=== PATIENT | male | born 1945 | race Caucasian/White ===

== ENCOUNTER 2020-12-22 09:54 | Inpatient (IN) | payer OTHER ==
[2020-12-22] MEDS ORDERED: ONDANSETRON 4 MG/2 ML VIAL IVPUSH ONE (10:44)
[2020-12-22] MEDS ORDERED: SODIUM CHLORIDE 1,000 ML IV STA (10:44)
[2020-12-22] MEDS ORDERED: ACETAMINOPHEN 500 MG TABLET (FP) PO ONE (10:48)
[2020-12-22] MEDS ORDERED: ACETAMINOPHEN INJECTION 100 ML IVPB ONE (11:33)
[2020-12-22 12:37] LABS: BASO % 0.6 % (0-2.0); EOS % 0.2 % (0-4.5); HEMATOCRIT 39.3 % (35.4-49); HEMOGLOBIN 13.8 GM/dL (11.7-16.9); LYMPH % 4.8 % (8-40); MCH 32.3 pg (25.7-33.7); MCHC 35.2 g/dl (32.0-35.9); MEAN CELL VOLUME 91.6 fl (80-96); MEAN PLT VOLUME 8.2 fl (7.5-11.1); MONO % 3.4 % (3.8-10.2); PLATELET COUNT 235 K/MM3 (134-434); RBC 4.28 M/mm3 (4.00-5.60); RDW 13.7 % (11.9-15.9); WHITE BLOOD COUNT 13.5 K/mm3 (4.0-10.0)
[2020-12-22 12:54] LABS: CHLORIDE 95 mmol/L (98-107); SODIUM 130 mmol/L (136-145)
[2020-12-22 12:58] LABS: CALCIUM 8.9 mg/dL (8.5-10.1)
[2020-12-22 12:59] LABS: ALBUMIN 3.6 g/dl (3.4-5.0); ANION GAP 8 MMOL/L (8-16); BLOOD UREA NITROGEN 13.3 mg/dL (7-18); CO2 27 mmol/L (21-32); GLUCOSE,RANDOM 119 mg/dL (74-106)
[2020-12-22 13:02] LABS: CREATININE 1.1 mg/dL (0.55-1.3); SGOT/AST 44 U/L (15-37); SGPT/ALT 25 U/L (13-61)
[2020-12-22 13:03] LABS: BILIRUBIN,TOTAL 1.1 mg/dL (0.2-1); TOT PROT 7.5 g/dl (6.4-8.2)
[2020-12-22 13:05] LABS: ALK PHOS 39 U/L (45-117)
[2020-12-22 14:08] LABS: ANISOCYTOSIS 0; HELMET CELLS 0; HOWELL-JOLLY BODIES 0; MACROCYTOSIS 0; OVALOCYTE 0; PLATELET ESTIMATE NORMAL; ROULEAU 0; SICKELED CELLS 0; TARGET CELLS 0; TEAR DROP CELLS 0; TOXIC GRANULATION 0
[2020-12-22] MEDS ORDERED: VANCOMYCIN 1 GM in D5W (PRE-DOCKED) 1,000 MG/250 ML IVPB ONE (15:05)
[2020-12-22] MEDS ORDERED: AZTREONAM 1 GM VIAL (RESTRICTED TO ID) IVPB ONE (15:06)
[2020-12-22] MEDS ORDERED: AZTREONAM 1 GM VIAL (RESTRICTED TO ID) ONE (16:25)
[2020-12-22] MEDS ORDERED: VANCOMYCIN 1 GRAM (PRE-DOCKED) 1,000 MG/250 ML BAG IVPB ONE (16:26)
[2020-12-22 19:03] LABS: PH,URINE 5.5 (5.0-8.0); URINE APPEARANCE CLEAR; URINE BILIRUBIN NEGATIVE (NEGATIVE); URINE COLOR YELLOW; URINE GLUCOSE (UA) NEGATIVE (NEGATIVE); URINE KETONE NEGATIVE (NEGATIVE); URINE LEUK ESTERASE NEGATIVE (NEGATIVE); URINE NITRITE NEGATIVE (NEGATIVE); URINE PROTEIN NEGATIVE (NEGATIVE); URINE UROBILINOGEN 0.2 mg/dL (0.2-1.0)
[2020-12-22] MEDS ORDERED: DONEPEZIL HCL 5 MG TABLET (FP) ONE (21:28)
[2020-12-22] MEDS ORDERED: APIXABAN 5 MG TABLET ONE (21:28)
[2020-12-22] MEDS: ROSUVASTATIN CA 5 MG TABLET (FP) PO SCH (21:47)
[2020-12-22] MEDS: DONEPEZIL HCL 10 MG TABLET (FP) PO SCH (21:47)
[2020-12-22] MEDS: APIXABAN 5 MG TABLET PO SCH (21:47)
[2020-12-23 02:13] VITALS: BMI 27.7
[2020-12-23] MEDS: CLOPIDOGREL BISULFATE 75 MG TABLET (FP) PO SCH (09:17)
[2020-12-23] MEDS: PANTOPRAZOLE 20 MG TABLET PO SCH (09:18)
[2020-12-23] MEDS: APIXABAN 5 MG TABLET PO SCH ×2 (09:18→21:19)
[2020-12-23] MEDS: ASPIRIN 81 MG CHEWABLE TABLETS PO SCH (09:18)
[2020-12-23 09:46] LABS: BASO % 0.6 % (0-2.0); EOS % 0.9 % (0-4.5); HEMATOCRIT 40.2 % (35.4-49); HEMOGLOBIN 14.2 GM/dL (11.7-16.9); LYMPH % 11.2 % (8-40); MCH 32.5 pg (25.7-33.7); MCHC 35.3 g/dl (32.0-35.9); MEAN PLT VOLUME 7.5 fl (7.5-11.1); MONO % 8.2 % (3.8-10.2); NEUT % 79.1 % (42.8-82.8); PLATELET COUNT 209 K/MM3 (134-434); RBC 4.37 M/mm3 (4.00-5.60); WHITE BLOOD COUNT 10.1 K/mm3 (4.0-10.0)
[2020-12-23 10:13] LABS: ALBUMIN 3.5 g/dl (3.4-5.0); BLOOD UREA NITROGEN 11.8 mg/dL (7-18)
[2020-12-23 10:14] LABS: CALCIUM 8.5 mg/dL (8.5-10.1); MAGNESIUM 1.8 mg/dL (1.8-2.4)
[2020-12-23 10:16] LABS: CREATININE 0.9 mg/dL (0.55-1.3)
[2020-12-23 10:18] LABS: TOT PROT 7.1 g/dl (6.4-8.2)
[2020-12-23 10:20] LABS: BILIRUBIN,TOTAL 0.8 mg/dL (0.2-1)
[2020-12-23] MEDS: OSELTAMIVIR PHOSPHATE 75 MG CAPSULE PO SCH ×2 (13:45→22:11)
[2020-12-23] MEDS ORDERED: PT OWN MED DRAWER 7, Y5N ONE ×2 (21:15→23:24)
[2020-12-23] MEDS: ROSUVASTATIN CA 5 MG TABLET (FP) PO SCH (21:19)
[2020-12-23] MEDS: DONEPEZIL HCL 10 MG TABLET (FP) PO SCH (21:19)
[2020-12-24 09:22] LABS: CALCIUM 8.7 mg/dL (8.5-10.1)
[2020-12-24 09:23] LABS: BLOOD UREA NITROGEN 13.9 mg/dL (7-18)
[2020-12-24 09:26] LABS: CREATININE 0.8 mg/dL (0.55-1.3)
[2020-12-24] MEDS ORDERED: PT OWN MED DRAWER 7, Y5N ONE (09:57)
[2020-12-24] MEDS: PANTOPRAZOLE 20 MG TABLET PO SCH (09:59)
[2020-12-24] MEDS: APIXABAN 5 MG TABLET PO SCH (09:59)
[2020-12-24] MEDS: OSELTAMIVIR PHOSPHATE 75 MG CAPSULE PO SCH (09:59)
[2020-12-24] MEDS: ASPIRIN 81 MG CHEWABLE TABLETS PO SCH (09:59)
[2020-12-24] MEDS: CLOPIDOGREL BISULFATE 75 MG TABLET (FP) PO SCH (09:59)
[2020-12-24 10:13] VITALS: BP 144/76; PULSE 73; TEMP 98.3
== END 2020-12-24 13:45 | disposition home or self-care (01) | DRG 194 ==
LOC: JER 09:54 → JERBED 16:07 → J5S 23:33
PROVIDERS: ADMIT Internal Medicine
DX: J10.1 Influenza due to other identified influenza virus with other respiratory manifestations (principal); E87.1 Hypo-osmolality and hyponatremia; F03.90 Unspecified dementia, unspecified severity, without behavioral disturbance, psychotic disturbance, mood disturbance, and anxiety; I48.91 Unspecified atrial fibrillation; E78.5 Hyperlipidemia, unspecified; I10 Essential (primary) hypertension; I25.10 Atherosclerotic heart disease of native coronary artery without angina pectoris; Z95.5 Presence of coronary angioplasty implant and graft; D72.829 Elevated white blood cell count, unspecified
CPT/HCPCS: 36415; 71045-TC-FY; 71250-TC; 80048; 80053; 81003; 82550; 83735; 84100; 84443; 84484; 85025; 86769; 87804; 93005; 93010; 99285-25; C9803; U0003; U0005

== ENCOUNTER 2024-11-16 10:22 | Inpatient (IN) | payer OTHER ==
[2024-11-16 10:30] VITALS: BMI 26.6
[2024-11-16 11:47] LABS: EOS % 2.2 % (0-4.5); HEMATOCRIT 23.4 % (35.4-49); HEMOGLOBIN 7.4 GM/dL (11.7-16.9); LYMPH % 13.3 % (8-40); MCH 26.3 pg (25.7-33.7); MCHC 31.7 g/dl (32.0-35.9); MEAN CELL VOLUME 82.9 fl (80-96); MEAN PLT VOLUME 7.3 fl (7.5-11.1); MONO % 8.9 % (3.8-10.2); NEUT % 74.6 % (42.8-82.8); PLATELET COUNT 317 10^3/uL (134-434); RBC 2.82 M/mm3 (4.00-5.60); RDW 14.9 % (11.9-15.9)
[2024-11-16] MEDS ORDERED: ACETAMINOPHEN INJECTION 100 ML ONE (11:47)
[2024-11-16 11:53] LABS: INR 1.85 (0.83-1.09); PROTHROMBIN TIME (PATIENT) 20.2 SEC (9.7-13.0)
[2024-11-16 11:55] LABS: ACTIVATED PTT 33.6 SECONDS (25.2-36.5)
[2024-11-16 12:02] LABS: POTASSIUM 4.8 mmol/L (3.5-5.1)
[2024-11-16 12:04] LABS: CALCIUM 8.6 mg/dL (8.5-10.1)
[2024-11-16 12:05] LABS: ALBUMIN 3.5 g/dl (3.4-5.0); BLOOD UREA NITROGEN 16.9 mg/dL (7-18)
[2024-11-16] MEDS: ACETAMINOPHEN 1000 MG/100 ML BAG IVPB ONE (12:05)
[2024-11-16 12:08] LABS: CREATININE 1.3 mg/dL (0.55-1.3)
[2024-11-16 12:09] LABS: BILIRUBIN,TOTAL 0.4 mg/dL (0.2-1); TOT PROT 6.8 g/dl (6.4-8.2)
[2024-11-16 12:13] LABS: N-TERMINAL BNP 1537.2 pg/ml (5-450)
[2024-11-16 12:17] LABS: EPI CELLS 18 /uL (0-25.1); HYALINE CASTS 3 /uL (0-3.1); URINE APPEARANCE CLEAR; URINE BACTERIA 3 /uL (0-1359); URINE BILIRUBIN NEGATIVE (NEGATIVE); URINE COLOR YELLOW; URINE GLUCOSE (UA) NEGATIVE (NEGATIVE); URINE KETONE NEGATIVE (NEGATIVE); URINE LEUK ESTERASE NEGATIVE (NEGATIVE); URINE NITRITE NEGATIVE (NEGATIVE); URINE PROTEIN 1+ (NEGATIVE); URINE RBC 28 /uL (0-23.9); URINE UROBILINOGEN 0.2 mg/dL (0.2-1.0); URINE WBC 29 /uL (0-25.8)
[2024-11-16 12:59] LABS: HIV INTERPRETATION NEGATIVE (NEGATIVE)
[2024-11-16 15:32] LABS: MAGNESIUM 2.2 mg/dL (1.8-2.4)
[2024-11-16] MEDS: INSULIN ASPART SLIDING SCALE (NOVOLOG) 1 VIAL SQ SCH (17:13)
[2024-11-16] MEDS: traMADol HCL 50 MG TABLET PO PRN (17:15)
[2024-11-16] MEDS: ACETAMINOPHEN 325 MG TABLET (FP) PO PRN (20:44)
[2024-11-16] MEDS: PANTOPRAZOLE SODIUM 40 MG VIAL IVPUSH SCH (21:35)
[2024-11-16] MEDS: ROSUVASTATIN CA 5 MG TABLET PO SCH (21:35)
[2024-11-17 07:57] LABS: HEMOGLOBIN 8.2 GM/dL (11.7-16.9); MCHC 32.8 g/dl (32.0-35.9); MEAN CELL VOLUME 82.3 fl (80-96); MEAN PLT VOLUME 7.6 fl (7.5-11.1); PLATELET COUNT 290 10^3/uL (134-434); RBC 3.04 M/mm3 (4.00-5.60); RDW 14.6 % (11.9-15.9); WHITE BLOOD COUNT 8.5 K/mm3 (4.0-10.0)
[2024-11-17 08:08] LABS: POTASSIUM 4.2 mmol/L (3.5-5.1)
[2024-11-17 08:12] LABS: CALCIUM 8.3 mg/dL (8.5-10.1)
[2024-11-17 08:13] LABS: ALBUMIN 3.3 g/dl (3.4-5.0); BLOOD UREA NITROGEN 17.7 mg/dL (7-18); MAGNESIUM 2.2 mg/dL (1.8-2.4)
[2024-11-17 08:16] LABS: CREATININE 1.1 mg/dL (0.55-1.3); PHOSPHOROUS 3.6 mg/dL (2.5-4.9)
[2024-11-17 08:17] LABS: BILIRUBIN,TOTAL 1.2 mg/dL (0.2-1); TOT PROT 6.5 g/dl (6.4-8.2)
[2024-11-17] MEDS: LORATADINE 10 MG TABLET PO SCH (09:46)
[2024-11-17] MEDS: metoPROLOL SUCCINATE 25 MG TAB.SR.24H (FP) PO SCH (09:46)
[2024-11-17] MEDS: IRON SUCROSE INJECTION 100 MG in SODIUM CHLORIDE 95 ML IVPB ONE (15:51)
[2024-11-17] MEDS ORDERED: TORSEMIDE 20 MG TABLET (FP) PO SCH (21:00)
[2024-11-17] MEDS: ROSUVASTATIN CA 20 MG TABLET PO SCH (21:30)
[2024-11-17] MEDS: TORSEMIDE 10 MG TABLET PO SCH (21:30)
[2024-11-18 07:29] LABS: HEMATOCRIT 25.8 % (35.4-49); HEMOGLOBIN 8.3 GM/dL (11.7-16.9); MCH 26.3 pg (25.7-33.7); MCHC 32.1 g/dl (32.0-35.9); MEAN CELL VOLUME 81.9 fl (80-96); MEAN PLT VOLUME 7.8 fl (7.5-11.1); PLATELET COUNT 317 10^3/uL (134-434); RBC 3.15 M/mm3 (4.00-5.60); RDW 14.6 % (11.9-15.9)
[2024-11-18 07:57] LABS: POTASSIUM 4.3 mmol/L (3.5-5.1)
[2024-11-18 08:09] LABS: BLOOD UREA NITROGEN 17.6 mg/dL (7-18); CALCIUM 8.6 mg/dL (8.5-10.1); MAGNESIUM 2.1 mg/dL (1.8-2.4)
[2024-11-18 08:10] LABS: CREATININE 1.3 mg/dL (0.55-1.3)
[2024-11-18] MEDS: IRON SUCROSE INJECTION 200 MG in SODIUM CHLORIDE 100 ML IVPB ONE (14:18)
[2024-11-19 06:54] LABS: INR 1.39 (0.83-1.09); PROTHROMBIN TIME (PATIENT) 15.1 SEC (9.7-13.0)
[2024-11-19 06:57] LABS: BASO % 0.9 % (0-2.0); EOS % 2.6 % (0-4.5); HEMATOCRIT 25.2 % (35.4-49); HEMOGLOBIN 8.2 GM/dL (11.7-16.9); LYMPH % 15.1 % (8-40); MCH 26.9 pg (25.7-33.7); MCHC 32.7 g/dl (32.0-35.9); MEAN CELL VOLUME 82.4 fl (80-96); MEAN PLT VOLUME 7.8 fl (7.5-11.1); MONO % 9.1 % (3.8-10.2); NEUT % 72.3 % (42.8-82.8); PLATELET COUNT 308 10^3/uL (134-434); RBC 3.06 M/mm3 (4.00-5.60); RDW 14.8 % (11.9-15.9); WHITE BLOOD COUNT 9.3 K/mm3 (4.0-10.0)
[2024-11-19 07:47] LABS: POTASSIUM 3.9 mmol/L (3.5-5.1)
[2024-11-19 07:50] LABS: CALCIUM 8.4 mg/dL (8.5-10.1)
[2024-11-19 07:51] LABS: BLOOD UREA NITROGEN 18.9 mg/dL (7-18)
[2024-11-19 07:54] LABS: CREATININE 1.3 mg/dL (0.55-1.3)
[2024-11-19] MEDS: VALSARTAN 160 MG TABLET PO SCH (09:51)
[2024-11-19] MEDS: PANTOPRAZOLE 40 MG TABLET PO SCH (09:51)
[2024-11-19] MEDS ORDERED: BISACODYL 5 MG TABLET.DR (FP) PO ONE (16:00)
[2024-11-19] MEDS: PEG 3350/NA SULF BICARB CL/KCL 4000 ML SOLN.RECON PO ONE (18:18)
[2024-11-19] MEDS: BISACODYL 5 MG TABLET.DR (FP) PO ONE (18:21)
[2024-11-20] MEDS: traMADol HCL 50 MG TABLET PO PRN (00:31)
[2024-11-20 08:00] LABS: POTASSIUM 3.4 mmol/L (3.5-5.1)
[2024-11-20 08:03] LABS: ALBUMIN 3.2 g/dl (3.4-5.0); BLOOD UREA NITROGEN 12.5 mg/dL (7-18)
[2024-11-20 08:04] LABS: HEMOGLOBIN 7.6 g/dL (13.7-17.5); MCHC 30.4 g/dl (32.3-36.5); MEAN CELL VOLUME 87.7 fl (79.0-92.2); PLATELET COUNT 314 x10^3/uL (163-337); RDW 14.2 % (12.6-16.6)
[2024-11-20 08:06] LABS: CREATININE 1.2 mg/dL (0.55-1.3); PHOSPHOROUS 3.6 mg/dL (2.5-4.9)
[2024-11-20 08:08] LABS: BILIRUBIN,TOTAL 0.8 mg/dL (0.2-1); TOT PROT 6.3 g/dl (6.4-8.2)
[2024-11-20 08:23] LABS: ABSOLUTE IMMATURE GRANULOCYTES 0.06 x10^3/uL (0.0-0.031); BASOPHILS # 0.07 x10^3/uL (0.01-0.08); EOSINOPHIL % 3.2 % (0.8-7.0); EOSINOPHILS # 0.33 x10^3/uL (0.04-0.54); HEMATOCRIT 25.5 % (40.1-51.0); HEMOGLOBIN 7.6 g/dL (13.7-17.5); MCHC 29.8 g/dl (32.3-36.5); MEAN CELL VOLUME 87.6 fl (79.0-92.2); MONOCYTE # 0.91 x10^3/uL (0.30-0.82); MONOCYTE % 8.9 % (5.3-12.2); PLATELET COUNT 309 x10^3/uL (163-337); RDW 14.3 % (12.6-16.6)
[2024-11-20] MEDS: KCL 10 MEQ IVPB 10 MEQ/100 ML INFUS.BAG IVPB SCH (09:37)
[2024-11-21 07:58] LABS: HEMATOCRIT 24.6 % (40.1-51.0); HEMOGLOBIN 7.5 g/dL (13.7-17.5); MCHC 30.5 g/dl (32.3-36.5); MEAN CELL VOLUME 87.5 fl (79.0-92.2); MEAN PLT VOLUME 9.7 fl (9.4-12.4); PLATELET COUNT 284 x10^3/uL (163-337); RDW 14.4 % (12.6-16.6)
[2024-11-21 08:14] LABS: POTASSIUM 3.4 mmol/L (3.5-5.1)
[2024-11-21 08:18] LABS: ALBUMIN 3.1 g/dl (3.4-5.0); BLOOD UREA NITROGEN 15.1 mg/dL (7-18); CALCIUM 8.3 mg/dL (8.5-10.1); MAGNESIUM 2.2 mg/dL (1.8-2.4)
[2024-11-21 08:21] LABS: CREATININE 1.2 mg/dL (0.55-1.3)
[2024-11-21 08:22] LABS: PHOSPHOROUS 3.7 mg/dL (2.5-4.9)
[2024-11-21 08:23] LABS: BILIRUBIN,TOTAL 0.6 mg/dL (0.2-1); TOT PROT 6.1 g/dl (6.4-8.2)
[2024-11-21] MEDS: IRON SUCROSE INJECTION 200 MG in SODIUM CHLORIDE 100 ML IVPB ONE (14:48)
[2024-11-21] MEDS: IRON SUCROSE INJECTION 100 MG in SODIUM CHLORIDE 95 ML IVPB ONE (15:41)
[2024-11-21] MEDS: PANTOPRAZOLE 40 MG TABLET PO SCH (21:42)
[2024-11-22 07:07] LABS: HEMATOCRIT 25.5 % (40.1-51.0); HEMOGLOBIN 7.7 g/dL (13.7-17.5); MCHC 30.2 g/dl (32.3-36.5); MEAN CELL VOLUME 89.2 fl (79.0-92.2); PLATELET COUNT 279 x10^3/uL (163-337)
[2024-11-22 07:20] LABS: POTASSIUM 3.3 mmol/L (3.5-5.1)
[2024-11-22 07:26] LABS: BLOOD UREA NITROGEN 13.8 mg/dL (7-18); CALCIUM 8.1 mg/dL (8.5-10.1); MAGNESIUM 2.1 mg/dL (1.8-2.4)
[2024-11-22 07:29] LABS: CREATININE 1.2 mg/dL (0.55-1.3); PHOSPHOROUS 3.3 mg/dL (2.5-4.9)
[2024-11-22 07:30] LABS: BILIRUBIN,TOTAL 0.4 mg/dL (0.2-1); TOT PROT 6.2 g/dl (6.4-8.2)
[2024-11-23 07:37] LABS: HEMATOCRIT 29.8 % (40.1-51.0); HEMOGLOBIN 8.7 g/dL (13.7-17.5); MCHC 29.2 g/dl (32.3-36.5); MEAN CELL VOLUME 90.9 fl (79.0-92.2); MEAN PLT VOLUME 9.8 fl (9.4-12.4); PLATELET COUNT 304 x10^3/uL (163-337); RDW 16.9 % (12.6-16.6)
[2024-11-23 07:38] LABS: POTASSIUM 3.5 mmol/L (3.5-5.1)
[2024-11-23 07:40] LABS: CALCIUM 8.8 mg/dL (8.5-10.1)
[2024-11-23 07:44] LABS: CREATININE 1.2 mg/dL (0.55-1.3); PHOSPHOROUS 3.6 mg/dL (2.5-4.9)
[2024-11-23] MEDS: DOXYCYCLINE INJECTION 100 MG in DEXTROSE 5%-WATER 100 ML IVPB SCH (10:59)
[2024-11-23] MEDS: ENOXAPARIN NA (PORCINE) 80 MG/0.8 ML DISP.SYRIN SQ SCH (18:13)
[2024-11-24 07:12] LABS: INR 1.31 (0.83-1.09); PROTHROMBIN TIME (PATIENT) 14.4 SEC (9.7-13.0)
[2024-11-24 07:15] LABS: ACTIVATED PTT 31.8 SECONDS (25.2-36.5)
[2024-11-24 07:26] LABS: POTASSIUM 3.5 mmol/L (3.5-5.1)
[2024-11-24 07:31] LABS: ALBUMIN 3.1 g/dl (3.4-5.0); BLOOD UREA NITROGEN 13.9 mg/dL (7-18); CALCIUM 8.5 mg/dL (8.5-10.1); MAGNESIUM 1.9 mg/dL (1.8-2.4)
[2024-11-24 07:34] LABS: CREATININE 1.1 mg/dL (0.55-1.3)
[2024-11-24 07:35] LABS: PHOSPHOROUS 3.6 mg/dL (2.5-4.9)
[2024-11-24 07:36] LABS: BILIRUBIN,TOTAL 0.6 mg/dL (0.2-1); TOT PROT 6.4 g/dl (6.4-8.2)
[2024-11-24 07:46] LABS: ABSOLUTE IMMATURE GRANULOCYTES 0.04 x10^3/uL (0.0-0.031); BASOPHILS # 0.07 x10^3/uL (0.01-0.08); EOSINOPHIL % 2.6 % (0.8-7.0); EOSINOPHILS # 0.26 x10^3/uL (0.04-0.54); HEMATOCRIT 27.1 % (40.1-51.0); HEMOGLOBIN 8.2 g/dL (13.7-17.5); MCHC 30.3 g/dl (32.3-36.5); MEAN CELL VOLUME 89.7 fl (79.0-92.2); MEAN PLT VOLUME 10.2 fl (9.4-12.4); MONOCYTE # 0.82 x10^3/uL (0.30-0.82); MONOCYTE % 8.2 % (5.3-12.2); PLATELET COUNT 277 x10^3/uL (163-337); RDW 17.5 % (12.6-16.6)
[2024-11-24 07:50] LABS: HEMATOCRIT 27.6 % (40.1-51.0); HEMOGLOBIN 8.3 g/dL (13.7-17.5); MCHC 30.1 g/dl (32.3-36.5); MEAN CELL VOLUME 89.9 fl (79.0-92.2); MEAN PLT VOLUME 10.2 fl (9.4-12.4); PLATELET COUNT 282 x10^3/uL (163-337); RDW 17.2 % (12.6-16.6)
[2024-11-24] MEDS: POLYETHYLENE GLYCOL 3350 255 GM BTL PO ONE (10:23)
[2024-11-24] MEDS: metroNIDAZOLE 500 MG TABLET PO SCH (14:20)
[2024-11-24] MEDS: NEOMYCIN SO4 500 MG TABLET PO SCH (14:21)
[2024-11-24] MEDS: BISACODYL 5 MG TABLET.DR (FP) PO ONE ×2 (14:29→14:34)
[2024-11-25 06:57] LABS: HEMATOCRIT 26.6 % (40.1-51.0); MCHC 30.1 g/dl (32.3-36.5); MEAN CELL VOLUME 90.8 fl (79.0-92.2); MEAN PLT VOLUME 9.9 fl (9.4-12.4); PLATELET COUNT 254 x10^3/uL (163-337); RDW 17.9 % (12.6-16.6)
[2024-11-25 07:26] LABS: POTASSIUM 3.5 mmol/L (3.5-5.1)
[2024-11-25 07:31] LABS: BLOOD UREA NITROGEN 9.5 mg/dL (7-18); CALCIUM 8.7 mg/dL (8.5-10.1); MAGNESIUM 1.7 mg/dL (1.8-2.4)
[2024-11-25] MEDS: ENOXAPARIN NA (PORCINE) 80 MG/0.8 ML DISP.SYRIN SQ ONE (10:15)
[2024-11-25] MEDS: MAG HYDROX/ALH/SMC/DPHA/LIDO 240 ML MOUTHWASH MM SCH (12:29)
[2024-11-25] MEDS: NEOMYCIN SO4 500 MG TABLET PO SCH ×2 (13:53→22:20)
[2024-11-25] MEDS: metroNIDAZOLE 500 MG TABLET PO SCH ×2 (13:53→22:21)
[2024-11-25] MEDS ORDERED: MAGNESIUM 2GM/50ML STERILE WATER IVPB IVPB ONE (14:28)
[2024-11-25] MEDS: MAGNESIUM 2GM/50ML STERILE WATER IVPB IVPB ONE (17:12)
[2024-11-25] MEDS ORDERED: traMADol HCL 50 MG TABLET PO PRN (18:30)
[2024-11-25] MEDS ORDERED: ACETAMINOPHEN 325 MG TABLET (FP) PO PRN (18:30)
[2024-11-25] MEDS: DOXYCYCLINE INJECTION 100 MG in DEXTROSE 5%-WATER 100 ML IVPB SCH (21:54)
[2024-11-25] MEDS: PANTOPRAZOLE 40 MG TABLET PO SCH (21:55)
[2024-11-25] MEDS: ROSUVASTATIN CA 20 MG TABLET PO SCH (21:55)
[2024-11-25] MEDS: INSULIN ASPART SLIDING SCALE (NOVOLOG) 1 VIAL SQ SCH (21:59)
[2024-11-26] MEDS: MAG HYDROX/ALH/SMC/DPHA/LIDO 240 ML MOUTHWASH MM SCH ×2 (00:02→19:20)
[2024-11-26] MEDS ORDERED: HEPARIN NA (PORCINE) 5,000 UNITS/ML 1ML VIAL ONE (07:12)
[2024-11-26] MEDS ORDERED: BUPIVACAINE HCL/PF 0.25% (2.5MG/ML) 10 ML VIAL ONE (07:12)
[2024-11-26] MEDS ORDERED: cefOXitin SODIUM 2 GM VIAL (RESTRICTED TO ID) IVPB ONE (07:12)
[2024-11-26] MEDS ORDERED: INDOCYANINE GREEN 25 MG/10 ML VIAL IVPUSH ONE (07:12)
[2024-11-26] MEDS ORDERED: DEXAMETHASONE SOD PHOSPHATE 4 MG/1 ML VIAL ONE (07:35)
[2024-11-26] MEDS ORDERED: PROPOFOL 40 ML ONE (07:35)
[2024-11-26] MEDS ORDERED: ONDANSETRON 4 MG/2 ML VIAL ONE (07:35)
[2024-11-26] MEDS ORDERED: MIDAZOLAM HCL 2 MG/2 ML SINGLE DOSE VIAL ONE (07:36)
[2024-11-26] MEDS ORDERED: SUCCINYLCHOLINE CHLORIDE 200 MG/10 ML SYRINGE ONE (07:36)
[2024-11-26] MEDS ORDERED: ROCURONIUM BROMIDE 50 MG/5 ML SYRINGE ONE ×2 (07:36→11:39)
[2024-11-26 07:48] LABS: MCHC 29.6 g/dl (32.3-36.5); MEAN CELL VOLUME 90.6 fl (79.0-92.2); PLATELET COUNT 263 x10^3/uL (163-337); RDW 17.9 % (12.6-16.6)
[2024-11-26] MEDS ORDERED: ONDANSETRON 4 MG/2 ML VIAL IVPUSH PRN ×2 (07:59→15:16)
[2024-11-26] MEDS ORDERED: LACTATED RINGERS SOLUTION 1,000 ML IV SCH (08:00)
[2024-11-26 08:11] LABS: POTASSIUM 3.8 mmol/L (3.5-5.1)
[2024-11-26 08:16] LABS: BLOOD UREA NITROGEN 9.5 mg/dL (7-18)
[2024-11-26 08:18] LABS: CALCIUM 8.6 mg/dL (8.5-10.1)
[2024-11-26 08:20] LABS: CREATININE 1.1 mg/dL (0.55-1.3); PHOSPHOROUS 3.1 mg/dL (2.5-4.9)
[2024-11-26] MEDS: cefOXitin SODIUM 2 GM VIAL (RESTRICTED TO ID) IVPB ONE ×2 (08:39→11:45)
[2024-11-26] MEDS: HEPARIN NA (PORCINE) 5,000 UNITS/ML 1ML VIAL SQ ONE (08:40)
[2024-11-26] MEDS ORDERED: ROCURONIUM BROMIDE 50 MG/5 ML VIAL ONE (10:02)
[2024-11-26] MEDS: LORATADINE 10 MG TABLET PO SCH (10:35)
[2024-11-26] MEDS: metoPROLOL SUCCINATE 25 MG TAB.SR.24H (FP) PO SCH (10:35)
[2024-11-26] MEDS: VALSARTAN 160 MG TABLET PO SCH (10:35)
[2024-11-26] MEDS ORDERED: SUGAMMADEX SODIUM 200 MG/2 ML VIAL ONE (13:52)
[2024-11-26] MEDS ORDERED: traMADol HCL 50 MG TABLET PO PRN ×2 (15:08→15:14)
[2024-11-26] MEDS: INSULIN ASPART SLIDING SCALE (NOVOLOG) 1 VIAL SQ SCH (17:52)
[2024-11-26] MEDS: LACTATED RINGERS SOLUTION 1,000 ML IV SCH (17:54)
[2024-11-26] MEDS: CEFOXITIN SODIUM 1 GM in DEXTROSE 5%-WATER 100 ML IVPB SCH (20:34)
[2024-11-26] MEDS: ROSUVASTATIN CA 20 MG TABLET PO SCH (22:08)
[2024-11-26] MEDS: ACETAMINOPHEN 1000 MG/100 ML BAG IVPB SCH (22:08)
[2024-11-27 09:26] LABS: HEMATOCRIT 28.1 % (40.1-51.0); HEMOGLOBIN 8.1 g/dL (13.7-17.5); MCHC 28.8 g/dl (32.3-36.5); RDW 17.8 % (12.6-16.6)
[2024-11-27 09:35] LABS: POTASSIUM 4.1 mmol/L (3.5-5.1)
[2024-11-27 09:39] LABS: BLOOD UREA NITROGEN 15.2 mg/dL (7-18)
[2024-11-27 09:41] LABS: CALCIUM 8.3 mg/dL (8.5-10.1)
[2024-11-27 09:42] LABS: CREATININE 1.2 mg/dL (0.55-1.3); MAGNESIUM 1.8 mg/dL (1.8-2.4); PHOSPHOROUS 2.8 mg/dL (2.5-4.9)
[2024-11-27] MEDS ORDERED: ENOXAPARIN NA (PORCINE) 40 MG/0.4 ML DISP.SYRIN SQ SCH (10:00)
[2024-11-27] MEDS: LACTATED RINGERS SOLUTION 1,000 ML IV SCH (10:35)
[2024-11-27] MEDS: DOXYCYCLINE INJECTION 100 MG in DEXTROSE 5%-WATER 100 ML IVPB SCH (10:56)
[2024-11-27] MEDS: BACITRACIN ZINC 15 GM TUBE TOPICAL OINTMENT TP SCH (10:56)
[2024-11-27] MEDS: PANTOPRAZOLE SODIUM 40 MG VIAL IVPUSH SCH (10:56)
[2024-11-27] MEDS: ENOXAPARIN NA (PORCINE) 40 MG/0.4 ML DISP.SYRIN SQ SCH (10:56)
[2024-11-27] MEDS: MULTIVITAMINS (DAILY MVI) TABLET (FP) PO SCH (10:57)
[2024-11-27] MEDS: metoPROLOL SUCCINATE 25 MG TAB.SR.24H (FP) PO SCH (10:57)
[2024-11-27] MEDS: VALSARTAN 160 MG TABLET PO SCH (10:57)
[2024-11-27] MEDS: LORATADINE 10 MG TABLET PO SCH (10:57)
[2024-11-27] MEDS: IRON SUCROSE INJECTION 100 MG in SODIUM CHLORIDE 95 ML IVPB ONE (12:23)
[2024-11-27] MEDS: morphine SULFATE 4 MG/ML VIAL IVPUSH PRN (14:25)
[2024-11-27] MEDS: MAGNESIUM OXIDE 400 MG TABLET (FP) PO ONE (16:59)
[2024-11-27 18:19] LABS: MEAN PLT VOLUME 10.2 fl (9.4-12.4); PLATELET COUNT 281 x10^3/uL (163-337)
[2024-11-27] MEDS ORDERED: DOXYCYCLINE INJECTION 100 MG in DEXTROSE 5%-WATER 100 ML IVPB SCH (22:00)
[2024-11-27] MEDS: ACETAMINOPHEN 500 MG TABLET (FP) PO SCH (22:07)
[2024-11-28 09:18] LABS: HEMATOCRIT 32.2 % (40.1-51.0); HEMOGLOBIN 9.2 g/dL (13.7-17.5); MCHC 28.6 g/dl (32.3-36.5); MEAN CELL VOLUME 93.3 fl (79.0-92.2); MEAN PLT VOLUME 10.1 fl (9.4-12.4); PLATELET COUNT 328 x10^3/uL (163-337); RDW 18.6 % (12.6-16.6)
[2024-11-28 09:47] LABS: POTASSIUM 3.9 mmol/L (3.5-5.1)
[2024-11-28 10:22] LABS: BLOOD UREA NITROGEN 12.4 mg/dL (7-18); MAGNESIUM 2.1 mg/dL (1.8-2.4)
[2024-11-28 10:25] LABS: CREATININE 1.1 mg/dL (0.55-1.3)
[2024-11-28 10:26] LABS: PHOSPHOROUS 2.9 mg/dL (2.5-4.9)
[2024-11-28] MEDS: IRON SUCROSE INJECTION 100 MG in SODIUM CHLORIDE 95 ML IVPB ONE (13:12)
[2024-11-28] MEDS: PANTOPRAZOLE 40 MG TABLET PO SCH (22:19)
[2024-11-29 08:20] LABS: HEMATOCRIT 31.9 % (40.1-51.0); HEMOGLOBIN 9.3 g/dL (13.7-17.5); MCHC 29.2 g/dl (32.3-36.5); MEAN CELL VOLUME 91.7 fl (79.0-92.2); MEAN PLT VOLUME 9.8 fl (9.4-12.4); PLATELET COUNT 348 x10^3/uL (163-337); RDW 18.6 % (12.6-16.6)
[2024-11-29 08:42] LABS: POTASSIUM 4.2 mmol/L (3.5-5.1)
[2024-11-29 08:54] LABS: CALCIUM 8.7 mg/dL (8.5-10.1)
[2024-11-29 08:55] LABS: BLOOD UREA NITROGEN 11.6 mg/dL (7-18); MAGNESIUM 2.1 mg/dL (1.8-2.4)
[2024-11-29 08:58] LABS: CREATININE 0.9 mg/dL (0.55-1.3); PHOSPHOROUS 2.4 mg/dL (2.5-4.9)
[2024-11-29] MEDS ORDERED: DOXYCYCLINE HYCLATE 100 MG CAPSULE PO SCH (10:00)
[2024-11-29] MEDS: ACETAMINOPHEN 1000 MG/100 ML BAG IVPB PRN (17:51)
[2024-11-29] MEDS: LIDOCAINE VISCOUS 2% ORAL/TOP 15 ML UNIT-DOSE CUP MM ONE (22:23)
[2024-11-30 09:22] LABS: HEMATOCRIT 32.2 % (40.1-51.0); HEMOGLOBIN 9.5 g/dL (13.7-17.5); MCHC 29.5 g/dl (32.3-36.5); MEAN CELL VOLUME 91.5 fl (79.0-92.2); MEAN PLT VOLUME 9.8 fl (9.4-12.4); PLATELET COUNT 334 x10^3/uL (163-337); RDW 18.9 % (12.6-16.6)
[2024-11-30 09:39] LABS: MAGNESIUM 2.1 mg/dL (1.8-2.4); POTASSIUM 4.1 mmol/L (3.5-5.1)
[2024-11-30 09:43] LABS: PHOSPHOROUS 2.4 mg/dL (2.5-4.9)
[2024-11-30 09:45] LABS: CALCIUM 8.5 mg/dL (8.5-10.1)
[2024-11-30 09:46] LABS: BLOOD UREA NITROGEN 13.6 mg/dL (7-18)
[2024-11-30 09:49] LABS: CREATININE 0.9 mg/dL (0.55-1.3)
[2024-12-01] MEDS: ACETAMINOPHEN 1000 MG/100 ML BAG IVPB PRN (01:15)
[2024-12-01 07:42] LABS: HEMATOCRIT 33.1 % (40.1-51.0); HEMOGLOBIN 9.7 g/dL (13.7-17.5); MCHC 29.3 g/dl (32.3-36.5); MEAN CELL VOLUME 91.4 fl (79.0-92.2); MEAN PLT VOLUME 9.4 fl (9.4-12.4); PLATELET COUNT 361 x10^3/uL (163-337); RDW 19.4 % (12.6-16.6)
[2024-12-01 08:12] LABS: CALCIUM 8.7 mg/dL (8.5-10.1)
[2024-12-01 08:13] LABS: BLOOD UREA NITROGEN 14.9 mg/dL (7-18)
[2024-12-01 08:16] LABS: MAGNESIUM 1.5 mg/dL (1.8-2.4)
[2024-12-01] MEDS: MAGNESIUM 2GM/50ML STERILE WATER IVPB IVPB ONE (12:34)
[2024-12-01] MEDS: METOPROLOL TARTRATE 5 MG/5 ML VIAL IVPB ONE (16:20)
[2024-12-02 07:50] LABS: HEMOGLOBIN 9.3 g/dL (13.7-17.5); MEAN CELL VOLUME 91.2 fl (79.0-92.2); MEAN PLT VOLUME 8.9 fl (9.4-12.4); PLATELET COUNT 328 x10^3/uL (163-337); RDW 19.9 % (12.6-16.6)
[2024-12-02 08:11] LABS: POTASSIUM 3.7 mmol/L (3.5-5.1)
[2024-12-02 08:13] LABS: CALCIUM 8.4 mg/dL (8.5-10.1)
[2024-12-02 08:14] LABS: BLOOD UREA NITROGEN 17.7 mg/dL (7-18); MAGNESIUM 2.5 mg/dL (1.8-2.4)
[2024-12-02] MEDS: traMADol HCL 50 MG TABLET PO PRN (19:34)
[2024-12-02] MEDS: APIXABAN 5 MG TABLET PO SCH (21:33)
[2024-12-02] MEDS ORDERED: ENOXAPARIN NA (PORCINE) 40 MG/0.4 ML DISP.SYRIN SQ SCH (22:00)
[2024-12-03 08:20] LABS: HEMATOCRIT 32.3 % (40.1-51.0); HEMOGLOBIN 9.8 g/dL (13.7-17.5); MCHC 30.3 g/dl (32.3-36.5); MEAN CELL VOLUME 91.5 fl (79.0-92.2); MEAN PLT VOLUME 9.5 fl (9.4-12.4); PLATELET COUNT 350 x10^3/uL (163-337); RDW 19.4 % (12.6-16.6)
[2024-12-03 08:41] LABS: POTASSIUM 3.4 mmol/L (3.5-5.1)
[2024-12-03 08:45] LABS: BLOOD UREA NITROGEN 15.4 mg/dL (7-18); CALCIUM 8.2 mg/dL (8.5-10.1); MAGNESIUM 2.1 mg/dL (1.8-2.4)
[2024-12-03 08:48] LABS: CREATININE 0.9 mg/dL (0.55-1.3)
[2024-12-03 08:49] LABS: PHOSPHOROUS 3.3 mg/dL (2.5-4.9)
[2024-12-03] MEDS: POTASSIUM CHLORIDE TABS 20 MEQ TABLET.ER (FP) PO ONE (11:01)
[2024-12-03 14:05] VITALS: TEMP 97.7
[2024-12-03 21:10] VITALS: PULSE 68; RESP 24
[2024-12-04 06:06] VITALS: BP 133/66
[2024-12-04 08:35] LABS: HEMATOCRIT 34.3 % (40.1-51.0); MCHC 29.2 g/dl (32.3-36.5); MEAN PLT VOLUME 9.4 fl (9.4-12.4); PLATELET COUNT 391 x10^3/uL (163-337); RDW 19.1 % (12.6-16.6)
[2024-12-04 08:48] LABS: POTASSIUM 3.8 mmol/L (3.5-5.1)
[2024-12-04 08:51] LABS: CALCIUM 8.2 mg/dL (8.5-10.1)
[2024-12-04 08:55] LABS: CREATININE 0.9 mg/dL (0.55-1.3); PHOSPHOROUS 3.6 mg/dL (2.5-4.9)
== END 2024-12-04 10:40 | disposition home health service (06) | DRG 330 ==
LOC: JER 10:22 → JERBED 13:19 → J4W 16:20 → J7W 11-25 15:39 → J8W 11-26 14:56
PROVIDERS: ADMIT Student in an Organized Health Care Education/Training Program; ATTEND Nurse Practitioner Acute Care
PROC: 0DBH8ZX Excision of Cecum, Via Natural or Artificial Opening Endoscopic, Diagnostic (ICD-10-PCS; 2024-11-20)
PROC: 0DBK8ZX Excision of Ascending Colon, Via Natural or Artificial Opening Endoscopic, Diagnostic (ICD-10-PCS; 2024-11-20)
PROC: 0DB98ZX Excision of Duodenum, Via Natural or Artificial Opening Endoscopic, Diagnostic (ICD-10-PCS; 2024-11-20)
PROC: 0DB68ZX Excision of Stomach, Via Natural or Artificial Opening Endoscopic, Diagnostic (ICD-10-PCS; 2024-11-20)
PROC: 8E0W4CZ Robotic Assisted Procedure of Trunk Region, Percutaneous Endoscopic Approach (ICD-10-PCS; 2024-11-26)
PROC: 0DTF4ZZ Resection of Right Large Intestine, Percutaneous Endoscopic Approach (ICD-10-PCS; principal; 2024-11-26 08:00)
DX: C18.9 Malignant neoplasm of colon, unspecified (principal); I48.92 Unspecified atrial flutter; I50.32 Chronic diastolic (congestive) heart failure; K91.89 Other postprocedural complications and disorders of digestive system; K56.7 Ileus, unspecified; E78.5 Hyperlipidemia, unspecified; F03.90 Unspecified dementia, unspecified severity, without behavioral disturbance, psychotic disturbance, mood disturbance, and anxiety; I25.10 Atherosclerotic heart disease of native coronary artery without angina pectoris; I11.0 Hypertensive heart disease with heart failure; Z95.0 Presence of cardiac pacemaker; I35.0 Nonrheumatic aortic (valve) stenosis; D50.9 Iron deficiency anemia, unspecified; M25.552 Pain in left hip; K29.70 Gastritis, unspecified, without bleeding; E11.9 Type 2 diabetes mellitus without complications; I80.8 Phlebitis and thrombophlebitis of other sites; Y83.8 Other surgical procedures as the cause of abnormal reaction of the patient, or of later complication, without mention of misadventure at the time of the procedure
CPT/HCPCS: 0241U-QW; 36415; 36430; 71045-TC-FY; 71260-TC; 72100-TC-FY; 73502-TC-LT-FY; 74019-TC-FY; 74177-TC; 76882-TC-RT-FY; 80048; 80053; 81003; 82272; 82378; 82728; 82962; 83036; 83540; 83550; 83735; 83880; 84100; 84484; 85025; 85027; 85610; 85730; 86140; 86803; 86850; 86900; 86901; 86922; 87086; 87389; 88305-TC; 88307-TC; 88341-TC; 88342-TC; 93005; 93010; 93306-TC; 93971; 94010; 94760; 97116-GP; 97161-GP; 99285-25; J0131; J1644; J1756; P9038; P9058